=== PATIENT | male | born 1990 | race African-American/Black ===

== ENCOUNTER 2025-08-16 10:24 | Emergency (ER) | payer MEDICAID, SELFPAY ==
[2025-08-16 10:43] VITALS: BP 152/99; PULSE 55; RESP 18; TEMP 37.2; O2SAT 97
--- NOTE | 2025-08-16 10:49 | XR_ITS ---
Examination: CT abdomen and pelvis without contrast. Coronal 3-D reconstructions. Sagittal 2-D reconstructions. Date and time of exam:August 16, 2025 1112 hours INDICATIONS: Right-sided abdominal pain and nausea beginning today CTDI: vol (mGy): 6.11 DLP: (mGycm): 333 Technique: Axial images of the abdomen have been obtained, 3 mm slice thickness Intravenous contrast material has not been administered. Low dose protocols were performed. One or more of the following dose reduction techniques were used; automated exposure control, adjustment of the mA and/or KV according to patient size, use of iterative reconstruction technique. Findings: No focal liver or splenic lesions No gallstones No pancreatic or adrenal mass. Mild renal scarring 2 mm 3 mm lower pole left renal calculi Minimal right hydronephrosis secondary to 2.5 mm distal right ureteral calculus No bowel obstruction Normal appendix Contracted urinary bladder IMPRESSION: Minimal right hydronephrosis secondary to 2.5 mm distal right ureteral calculus
--- NOTE | 2025-08-16 10:49 | PD.EDRME ---
Rapid Medical Screening Exam RME Arrival date/time: 08/16/25 10:24 35-year-old male presents the emergency room today for complaint of right side abdominal pain Chief Complaint: Abdominal Pain Time Seen by Provider: 08/16/25 10:38 Vital signs: Vital Signs Temperature 98.9 F 08/16/25 10:43 Pulse Rate 55 L 08/16/25 10:43 Respiratory Rate 18 08/16/25 10:43 Blood Pressure 152/99 H 08/16/25 10:43 Pulse Oximetry (%) 97 08/16/25 10:43 Oxygen Delivery Method Room Air 08/16/25 10:43
[2025-08-16 11:24] LABS: Collection Type, Urine Clean Catch; Squamous Epithelial Cell,Urine 0 /hpf (0-5)
[2025-08-16 12:03] LABS: Bilirubin,Urine Negative (Negative); Blood,Urine 2+ (Negative); Color,Urine Yellow (Lt Yel-Yel); Glucose, Urine Negative (Negative); Ketones,Urine Trace (Negative); Leukocyte Esterase,Urine Negative (Negative); Nitrite,Urine Negative (Negative); PH,Urine 5.5 (5.0-7.0); Protein,Urine Trace (Neg - Trace); RBC,Urine 32 /hpf (0-3); Specific Gravity,Urine 1.039 (1.001-1.035); Urobilinogen,Urine Negative mg/dL (0.0-1.0); WBC,Urine 65 /hpf (0-5)
[2025-08-16 12:04] LABS: Amorphous Crystals,Urine Present (Absent)
[2025-08-16 12:04] LABS: Basophils # (Auto) 0.0 Thou/mm3 (0.0-0.2); Basophils % (Auto) 1 % (0-2.5); Eosinophils # (Auto) 0.0 Thou/mm3 (0.0-0.5); Eosinophils % (Auto) 1 % (0-10); Hematocrit 42.0 % (41.0-53.0); Hemoglobin 14.5 g/dL (13.5-16.0); Immature Granulocytes Auto 0.02 Thou/mm3 (0.00-0.00); Lymphocytes # (Auto) 1.4 Thou/mm3 (1.0-4.8); Lymphocytes % (Auto) 25 % (10-50); Mean Corpuscular HGB Conc 34.5 g/dl (31.0-37.0); Mean Corpuscular Hemoglobin 30.8 pg (25.0-35.0); Mean Corpuscular Volume 89 fL (80-100); Monocytes # (Auto) 0.5 Thou/mm3 (0.0-0.8); Monocytes % (Auto) 8 % (0-12); Neutrophils # (Auto) 3.7 Thou/mm3 (1.8-7.7); Neutrophils % (Auto) 66 % (37-80); Nucleated Red Blood Cell # 0.00 Thou/mm3 (0.00-0.00); Nucleated Red Blood Cell % 0 /100 WBC (0); Platelet Count 294 Thou/mm3 (140-440); RDW Standard Deviation 39.8 fL (35.1-43.9); Red Blood Count 4.71 Miln/mm3 (4.50-5.90); White Blood Count 5.6 Thou/mm3 (3.8-10.6)
[2025-08-16 12:17] LABS: Clarity,Urine Turbid (Clear/Hazy); Culture Indicated,Urine Yes
[2025-08-16 12:23] LABS: Alanine Aminotransferase 11 U/L (10-49); Albumin, Serum 4.8 gm/dL (3.5-5.0); Albumin/Globulin Ratio 1.9 (1.2-2.2); Alkaline Phosphatase 56 U/L (46-116); Anion Gap 11 (7-16); Aspartate Amino Transferase 16 U/L (0-34); BUN/Creatinine Ratio 10 Ratio (12-20); Bilirubin,Total 0.7 mg/dL (0.3-1.2); Blood Urea Nitrogen 10 mg/dL (9-23); Calcium 9.5 mg/dL (8.3-10.6); Calcium (Corrected) 9.5 mg/dL (8.5-10.1); Carbon Dioxide 26.7 mMol/L (20.0-31.0); Chloride 106 mMol/L (98-107); Creatinine (Component) 1.0 mg/dL (0.6-1.3); Globulin 2.5 gm/dL (2.3-3.5); Glucose 116 mg/dL (74-106); Lipase 39 U/L (12-53); Osmolality,Calculated 286 (275-295); Potassium 3.9 mMol/L (3.4-5.1); Sodium 144 mMol/L (136-145); Total Protein 7.3 gm/dL (5.7-8.2); eGFR > 60 See Note
[2025-08-16] MEDS: cefTRIAXone SOD INJ 1,000 MG VIAL 1000 MG IM (14:21)
[2025-08-16] MEDS: LIDOCAINE HCL 1% 20 ML VIAL 2.1 ML INFL (14:24)
[2025-08-16] MEDS: KETOROLAC INJ 60 MG/2 ML VIAL 30 MG IM (14:25)
--- NOTE | 2025-08-30 06:38 | EDNOTE_ITS ---
ED General RME/HPI General Chief complaint: Abdominal Pain Stated complaint: RIGHT ABD. PAIN X 1HR Time Seen by Provider: 08/16/25 10:38 Arrival date/time: 08/16/25 10:24 35-year-old male presents [facility] department today for complaints of 1 hour history of right-sided flank pain patient reports no fever or vomiting. Limitations: no limitations RME / HPI RME / HPI narrative: 08/16/25 10:24 35-year-old male presents the emergency room today for complaint of right side abdominal pain Related Data Previous Rx's ?Medication ?Instructions ?Recorded acetaminophen 325 mg capsule 650 mg (2 x 325 mg) PO Q6 H PRN 01/21/20 pain #30 caps ibuprofen 800 mg tablet 800 mg PO TID PRN pain #30 t abs 08/16/25 Allergies Allergy/AdvReac Type Severity Reaction Status Date / Time No Known Allergies Allergy Verified 08/16/25 10:27 Review of Systems Review of Systems Systems Reviewed: All systems reviewed, normal except as documented Constitutional Constitutional: Reports system reviewed and no additional complaints, except as documented, Denies fever(s) and Denies headache(s) Eyes Eyes: Reports system reviewed and no additional complaints, except as documented and Denies blurry vision ENT Ears, Nose, Mouth, and Throat: Reports system reviewed and no additional complaints, except as documented, Denies headache(s), Denies nasal congestion and Denies nasal discharge Cardiovascular Cardiovascular: Reports system reviewed and no additional complaints, except as documented, Denies chest pain and Denies dyspnea Respiratory Respiratory: Reports system reviewed and no additional complaints, except as documented, Denies chest congestion, Denies cough and Denies dyspnea Gastrointestinal Gastrointestinal: Reports system reviewed and no additional complaints, except as documented and Reports abdominal pain Genitourinary Genitourinary: Reports system reviewed and no additional complaints, except as documented and Reports other (Flank pain) Integumentary/Breasts Skin/Breast: Reports system reviewed and no additional complaints, except as documented and Denies rash Neurologic Neurologic: Reports system reviewed and no additional complaints, except as documented, Reports as per HPI and Denies headache(s) Past Medical History Past Medical History CARDIAC: Negative Congestive Heart Failure RESPIRATORY: Negative Chronic Obstructive Pulmonary Disease (COPD) GENITOURINARY: Negative Renal Disease ENDOCRINE: Negative Diabetes Mellitus Type 1 or Diabetes Mellitus Type 2 Social History SMOKING STATUS: Current every day smoker ED Exam General Limitations: Present no limitations General appearance: Present alert and in no apparent distress Head Head exam: Present atraumatic, normocephalic and normal inspection Eye Eye exam: Present normal appearance, PERRL and EOMI; Absent conjunctival injection ENT ENT exam: Present normal exam, normal oropharynx and mucous membranes moist Neck Neck exam: Present normal inspection, full ROM and trachea midline Chest Chest inspection: Present normal inspection and symmetric chest wall rise Respiratory Respiratory exam: Present normal lung sounds bilaterally Cardiovascular Cardiovascular exam: Present regular rate, normal rhythm and normal heart sounds Abdominal Exam Abdominal exam: Present soft and normal bowel sounds; Absent distention, tenderness, guarding, rebound, rigidity, Saha's sign or tenderness at McBurney's Point Abdominal tenderness: Absent RUQ or RLQ Extremities Exam Extremities exam: Present normal inspection and full ROM Back Exam Back exam: Present normal inspection and full ROM Neurological Exam Neurological exam: Present alert, oriented X3 and CN II-XII intact Psychiatric Psychiatric exam: Present normal affect and normal mood Skin Skin exam: Present warm, dry, intact and normal color Course Quality Measures none Orders Category Date Time Status CT abdomen pelvis wo con Stat Exams 08/16/25 10:49 Completed CBC Stat Lab 08/16/25 11:50 Completed Comprehensive Metabolic Panel Stat Lab 08/16/25 11:50 Completed Lipase Stat Lab 08/16/25 11:50 Completed UA, C/S IF [Urinalysis, C/S if Indicated] Stat Lab 08/16/25 11:15 Completed Urine Culture Stat Lab 08/16/25 11:15 Completed Ibuprofen Tab [Motrin Tab] Med 08/16/25 13:31 Discontinued 800 mg PO X1 ONE Ketorolac Inj [Toradol Inj] Med 08/16/25 13:36 Discontinued 30 mg IM X1 ONE Lidocaine 1% 20 ml [Xylocaine 1% 20 ML] Med 08/16/25 13:27 Discontinued 2.1 ml INFL X1 ONE cefTRIAXone [Rocephin] Med 08/16/25 13:27 Discontinued 1,000 mg IM X1 ONE Vital Signs Vital signs: Vital Signs Temperature 98.9 F 08/16/25 10:43 Pulse Rate 55 L 08/16/25 10:43 Respiratory Rate 18 08/16/25 10:43 Blood Pressure 152/99 H 08/16/25 10:43 Pulse Oximetry (%) 97 08/16/25 10:43 Oxygen Delivery Method Room Air 08/16/25 10:43 O2 saturation 97% room air with normal Discharge Plan Plan Patient Disposition: HOME (Self Care) Discharge Disposition comment: Stable Prescriptions/Referrals Prescriptions/Med Rec: New ibuprofen 800 mg tablet 800 mg PO TID PRN (Reason: pain) Qty: 30 0RF No Action acetaminophen 325 mg capsule 650 mg PO Q6H PRN (Reason: pain) Qty: 30 0RF Referrals: No Primary/Family,Physician [Primary Care Provider] - 08/17/25 Problem List Clinical Impression: Renal colic, UTI (urinary tract infection) Patient/Caregiver Discharge Instructions Education Materials: ED Kidney Stone w/ Colic Additional Instructions: Please follow up with your primary care doctor in the next 24-48hrs for any worsening symptoms return here immediately Print Language: Maltese Stand Alone Forms: Monika Award Info., Work/School Release, Patient Portal Info Letter PA/SUN Supervising Physician PA/SUN Supervising Physician: dr odell MDM Narrative MDM hospital course (for use when minimal MDM required): 35-year-old male presents emergency department today for complaints of 1 hour history of right-sided flank pain patient reports no fever or vomiting. On exam patient well-appearing patient does not appear ill or toxic no acute distress Lab work and imaging obtained patient does have small stone which I do believe the patient will pass Did explain to the patient there is a small percentage of people that will not pass a stone his size she has symptoms persist or worsen he is to return for reevaluation Patient given pain medication here which improved symptom significantly Patient discharged home in no distress to follow-up with primary care doctor in the next 24 to 48 hours and for any worsening symptoms to return to the ER immediately Clinical Information Provided by: none and patient Medical Records reviewed None Meds/Rx considered, not ordered describe: Given Labs/Rad/Tests considered, not ordered Describe: Obtained Chronic Illness/Social Conditions which may negatively complicate care or outcome(s)-explain: None or not applicable EKG EKG not done Labs Labs: interpreted by me Imaging Imaging interpretation: interpreted by me Medication Administration(s) Medication Administration History Discontinued Medications Ceftriaxone Sodium (Ceftriaxone Sod Inj 1,000 Mg Vial) 1,000 mg IM X1 ONE Stop: 08/16/25 13:28 Last Admin: 08/16/25 14:21 Dose: 1,000 mg Documented By: Ibuprofen (Ibuprofen Tab 400 Mg Tablet) 800 mg PO X1 ONE Stop: 08/16/25 13:32 Last Admin: 08/16/25 14:32 Dose: Not Given Documented By: Non-Admin Reason: Cancelled by Provider Ketorolac Tromethamine (Ketorolac Inj 60 Mg/2 Ml Vial) 30 mg IM X1 ONE Stop: 08/16/25 13:37 Last Admin: 08/16/25 14:25 Dose: 30 mg Documented By: Lidocaine HCl (Lidocaine Hcl 1% 20 Ml Vial) 2.1 ml INFL X1 ONE Stop: 08/16/25 13:28 Last Admin: 08/16/25 14:24 Dose: 2.1 ml Documented By: Given Diagnosis Differential Diagnosis ED Complaint MDM: Renal colic, muscle spasm, muscle strain
== END 2025-08-16 14:37 | disposition home or self-care (01) ==
PROVIDERS: Nurse Practitioner Primary Care; Emergency Provider Emergency Medicine
DX: N39.0 Urinary tract infection, site not specified (principal); N23 Unspecified renal colic
CPT/HCPCS: 36415; 74176; 80053; 81001; 83690; 85025; 87086; 96372; 99284; J0696; J1885; J3490